=== PATIENT | female | born 2000 | race African-American/Black ===

== ENCOUNTER → 2019-12-08 16:51 | Outpatient (CLI) | payer OTHER, SELFPAY ==
--- NOTE | 2019-12-08 | DI.US.S_ITS ---
PROCEDURE: US OB <= 14 WEEKS FETUS INDICATIONS: INITIAL SIZING AND DATES OUTSIDE/PRIOR DATING DATA: Last menstrual period (LMP): 11/01/19. LMP-based estimated date of delivery (MILLIE): 08/07/20 First dating scan (date and location): 12/08/19, this study Estimated date of delivery (MILLIE) from first dating scan: 08/06/20 TECHNIQUE: Real-time scanning was performed of the fetus and maternal pelvic organs, with image documentation. Endovaginal scanning was also performed to better visualize the fetus and maternal ovaries. COMPARISON: None. FINDINGS: Embryo: Not seen but there is a yolk sac within the gestational sac within the uterus. This yolk sac measures up to 7 mm in average diameter with a gestational age correlated to 5 weeks 3 days. Measurement variability in dating: +/- 4 weeks by LMP, +/- 7 days by mean sac diameter (use before 6 weeks gestation if crown-rump length not able to be measured), +/- 5 days by crown-rump length (up to 8 weeks 6 days gestation), +/- 7 days by crown-rump length (up to 13 weeks 6 days gestation). Maternal organs: Ovaries normal considering gestational status. Limited images through the kidneys demonstrate no hydronephrosis. IMPRESSION: 5 week 3 day gestational age based on mean sac diameter, +/-7 days. cardiac activity is not yet observed but not expected at this young gestational age. +/-7 days. Assuming viable gestation delivery date is projected to be centered on 08/06/20, Dictated by: Dc Mancuso M.D. on 12/09/2019 at 8:14 Approved by: Dc Mancuso M.D. on 12/09/2019 at 8:16
== END ==
PROVIDERS: Family Provider Family Medicine; PCP Family Medicine; Referring Provider Internal Medicine; Visit Provider Internal Medicine
DX: Z36.87 Encounter for antenatal screening for uncertain dates (principal); Z3A.01 Less than 8 weeks gestation of pregnancy
CPT/HCPCS: 76801; 76817

== ENCOUNTER → 2020-03-20 14:16 | Outpatient (CLI) | payer OTHER, SELFPAY ==
--- NOTE | 2020-03-20 | DI.US.S_ITS ---
PROCEDURE: US OB >= 14 WEEKS FETUS INDICATIONS: 20 WEEK ANATOMICAL SURVEY OUTSIDE/PRIOR DATING DATA: Last menstrual period (LMP): 11/01/19. LMP-based estimated date of delivery (MILLIE): 08/07/20 First dating scan (date and location): 12/08/19 Estimated date of delivery (MILLIE) from first dating scan: 08/06/20 TECHNIQUE: Real-time scanning was performed of the fetus, with image documentation and biometric measurements. Endovaginal scanning: Not needed COMPARISON: Prior OB ultrasound 12/08/19 FINDINGS: General: A single living intrauterine gestation is present. Presentation: Breech. Placenta: Placental position is posterior , without previa. Amniotic fluid index: 16.4 cm, normal range is 5-24 cm. heart rate: 143 beats per minute. Maternal cervical canal: 3.8 cm long. Normal lower limit is 2.5 cm. biometrics: Biparietal diameter: 4.5 cm, 19 weeks 4 days Head circumference: 16.3 cm, 19 weeks 1 day Abdominal circumference: 15.0 cm common 20 weeks 2 days Femur length: 3.2 cm, 19 weeks 6 days Estimated gestational age from initial scan: 20 weeks 1 day Composite gestational age from present scan: 19 weeks 5 days Estimated weight and percentile: 321 g, 33rd percentile Measurement variability for biometric dating: +/- 7 days from 14 weeks to 15 weeks 6 days gestation, +/- 10 days from 16 weeks to 21 weeks 6 days gestation, +/- 2 weeks from 22 weeks to 27 weeks 6 days gestation, +/- 3 weeks for 28 weeks gestation or later. weight reference: 4500 g or EFW >90/95% is considered macrosomia or large for gestational age. EFW <10% is small for gestational age. EFW 5% or less is considered intra-uterine growth restriction. Anatomic survey: Neuro: Ventricles are non-dilated at less than 10 mm. Cisterna magna is normal at 3-11 mm. Cerebellum is normal in size and morphology. Nuchal skin fold: Normal at less than 6 mm between 14-21 weeks gestational age. Face: Nose and lips, facial profile are normal. Spine: No evidence for spina bifida. Heart: 4-chambered heart is present, with normal ventricular outflow tracts. Diaphragm: Diaphragm is intact. Stomach: Left-sided stomach is present. Kidneys: No hydronephrosis. Normal is less than 5 mm in 2nd trimester, less than 7 mm in 3rd trimester. Cord: 3-vessel cord has orthotopic insertion. Bladder: Normal in size. Extremities: All 4 extremities identified. IMPRESSION: Appropriate interval growth, no anomaly seen. The delivery date is projected to be centered on 08/06/20, +/-7 days. Dictated by: Dc Mancuso M.D. on 03/20/2020 at 16:16 Approved by: Dc Mancuso M.D. on 03/20/2020 at 16:20
== END ==
PROVIDERS: Family Provider Family Medicine; PCP Family Medicine; Referring Provider Family Medicine; Visit Provider Family Medicine
DX: Z36.89 Encounter for other specified antenatal screening (principal); Z3A.19 19 weeks gestation of pregnancy
CPT/HCPCS: 76811

== ENCOUNTER 2020-04-26 17:47 | Emergency (ER) | payer OTHER, SELFPAY ==
[2020-04-26 17:52] VITALS: BP 123/81; PULSE 95; RESP 17; TEMP 36.7; O2SAT 99; BMI 33.9
--- NOTE | 2020-04-26 18:42 | ED_ITS ---
HPI - Skin/Abscess/Foreign Bdy General Chief complaint: Skin/Abscess/Foreign Body Stated complaint: infection/pain- 25 wks not related Time Seen by Provider: 04/26/20 18:19 Source: patient Mode of arrival: Wheelchair Limitations: no limitations History of Present Illness HPI narrative: 19-year-old female nonsmoker at 25 weeks presents with her significant other and the chief complaint of ongoing pain, redness, and swelling of her external genitalia. She has seen her PCP who started her on Keflex and she states the symptoms are much better, but still present She denies any drainage, vaginal bleeding, or discharge. She denies systemic findings such as fever, chills, N/V, or other. MD complaint: abscess/boil Onset (ago): day(s) Tetanus up to date: yes Location: genitals Severity: moderate Quality: aching Pain Consistency: constant Relieving factors: none Exacerbating factors: none Context: none Associated symptoms: denies other symptoms Treatments prior to arrival: attempted to drain pus at home and antibiotic Related Data Home Medications Medication Instructions Recorded Confirmed TRIAMCINOLONE NASAL INHALER 0 INH * UK DOSE/FREQUENCY #0 01/19/07 (NASACORT) Loratadine (Claritin) 10 mg PO Q DAY #0 11/14/07 Allergies Allergy/AdvReac Type Severity Reaction Status Date / Time No Known Drug Allergies Allergy Verified 04/26/20 17:52 Review of Systems Constitutional Constitutional: Denies chills, Denies fatigue, Denies fever(s), Denies frequent falls, Denies lethargy and Denies weakness Eyes Eyes: Denies change in vision, Denies eye discharge, Denies irritation and Denies loss of vision ENT Ears, Nose, Mouth, and Throat: Denies change in voice, Denies dizziness, Denies neck pain, Denies sore throat and Denies throat swelling Cardiovascular Cardiovascular: Denies chest pain, Denies irregular heart rhythm, Denies lightheadedness, Denies palpitations, Denies dyspnea, Denies dyspnea on exertion and Denies orthopnea Respiratory Respiratory: Denies cough, Denies dyspnea, Denies dyspnea on exertion and Denies wheezing Gastrointestinal Gastrointestinal: Denies abdominal pain, Denies change in bowel habits, Denies diarrhea, Denies nausea and Denies vomiting Musculoskeletal Musculoskeletal: Denies neck pain and Denies numbness Integumentary/Breasts Skin/Breast: Denies pruritus, Reports erythema, Denies rash, Reports skin pain, Reports skin swelling and Denies wounds Neurologic Neurologic: Denies behavioral changes, Denies confusion, Denies dizziness, Denies frequent falls, Denies loss of vision, Denies numbness and Denies weakness Psychiatric Psychiatric: Denies anxiety, Denies behavioral changes, Denies confusion, Denies depression, Denies homicidal ideation and Denies suicidal ideation Endocrine Endocrine: Denies fatigue, Denies flushing and Denies palpitations Hematologic/Lymphatic Hematologic/Lymphatic: Denies easy bruising Allergic/Immunologic Allergic/Immunologic: Denies urticaria, Denies throat swelling and Denies wheezing Patient History Social History Smoking Status: Unknown if ever smoked Smoking Status: Unknown if ever smoked alcohol intake frequency: holidays/special occasions only Substance Use Type: marijuana Exam Narrative Exam Narrative: GEN: AOx3 and in mild distress EYES: Pupils are equal, round, and reactive to light and accommodation. Extraoccular muscles are intact bilaterally. There is no subconjunctival hemorrhage or exudate. CHEST: Lungs are clear to auscultation bilaterally and free of wheezes, rales, or rhonchi. Heart rate is regular rhythm, there are no murmurs, clicks, rubs, or gallops. There is no chest wall tenderness. ABD: Abdomen is soft and nontender. There is no guarding or rebound. Bowel sounds are normal in all 4 quadrants. There is no mass or organomegaly. : external genitalia examined with patient permission and female nursing outpatient coding specialist at the bedside. Right labia is slightly edematous, with mild erythema. No induration or fluctuance noted. No drainage or skin break down noted. No discharge or vaginal bleeding noted EXT: Full painless ROM of all extremities with no loss of sensation or strength. SKIN: Warm, pink, and dry. No erythema or rash Initial Vital Signs Initial Vital Signs: Vital Signs Temperature 98.1 F 04/26/20 17:52 Pulse Rate 95 H 04/26/20 17:52 Respiratory Rate 17 04/26/20 17:52 Blood Pressure 123/81 04/26/20 17:52 Pulse Oximetry 99 04/26/20 17:52 Course Consultations Consultation #1: call to OnCall provider for PCP, she has reviewed the case and will pass on results of the visit to Dr. Valiente. She will also call in an extention of ABX to her pharmacy Vital Signs Vital signs: Vital Signs - 8 hr 04/26/20 17:52 Temperature 98.1 F Pulse Rate 95 H Respiratory Rate 17 Blood Pressure 123/81 Pulse Oximetry 99 Discharge Plan Departure Patient Disposition: Home Clinical Impression: Folliculitis Instructions: DI for Skin Abscess Activity Restrictions/Additional Instructions: *You have been diagnosed with [painful external genitalia, likely folliculitis or small healing abscess] *What to do: *Take medications as directed: your doctors will extend your antibiotics *Follow up with your primary care provider in 2-3 days, call for an appointment. Let them know you were seen in the Emergency Department and that we ask that you be seen in follow up *Return to ER if you should have any new, worsening or concerning symptoms Prescriptions: No Action TRIAMCINOLONE NASAL INHALER (NASACORT) 0 INH * UK DOSE/FREQUENCY Qty: 0 RF: 0 Loratadine (Claritin) 10 mg PO Q DAY Qty: 0 RF: 0 Referrals: Patrick Valiente MD [Primary Care Provider] -
--- NOTE | 2020-04-26 18:50 | PC.NURSE ---
patient states that she has multiple cysts on vagina since 11 of April. She was treated by Dr. Rocha with a medication that smelled bad. She stated that she thinks one popped today because it was painful and she had fluid in her panties with a little blood
[2020-04-26 20:30] VITALS: BP 132/75; PULSE 95; RESP 14; O2SAT 99
== END 2020-04-26 20:31 | disposition home or self-care (01) ==
PROVIDERS: Emergency Provider Emergency Medicine; Family Provider Family Medicine; PCP Family Medicine
DX: L73.9 Follicular disorder, unspecified (principal)
CPT/HCPCS: 99281

== ENCOUNTER → 2020-05-30 12:46 | Outpatient (CLI) | payer OTHER, SELFPAY ==
--- NOTE | 2020-05-30 | DI.US.S_ITS ---
PROCEDURE: US OB LIMITED INDICATIONS: LGA OUTSIDE/PRIOR DATING DATA: Last menstrual period (LMP): 11/01/2019. LMP-based estimated date of delivery (MILLIE): 08/07/2020. First dating scan (date and location): 12/08/2019, [facility] Estimated date of delivery (MILLIE) from first dating scan: 08/06/2020. TECHNIQUE: Real-time scanning was performed of the fetus, with image documentation and biometric measurements. COMPARISON: None. FINDINGS: General: A single living intrauterine gestation is present. Presentation: Vertex. Placenta: Placental position is posterior , without previa. Amniotic fluid index: 18.9 cm, normal range is 5-24 cm. heart rate: 139 beats per minute. Maternal cervical canal: 2.7 cm long. Normal lower limit is 2.5 cm. biometrics: Biparietal diameter: 7.6 cm, 30 weeks 3 days Head circumference: 26.9 cm, 29 weeks 2 days Abdominal circumference: 25.9 cm, 30 weeks 0 days Femur length: 5.7 cm, 29 weeks 5 days Estimated gestational age from initial scan: not applicable. Composite gestational age from present scan: 29 weeks 6 days Estimated weight and percentile: 1473 g, 25th percentile Measurement variability for biometric dating: +/- 7 days from 14 weeks to 15 weeks 6 days gestation, +/- 10 days from 16 weeks to 21 weeks 6 days gestation, +/- 2 weeks from 22 weeks to 27 weeks 6 days gestation, +/- 3 weeks for 28 weeks gestation or later. weight reference: 4500 g or EFW >90/95% is considered macrosomia or large for gestational age. EFW <10% is small for gestational age. EFW 5% or less is considered intra-uterine growth restriction. Other: Not applicable. IMPRESSION: 1. Living 3rd trimester intrauterine with no evidence of complications. 2. Current ultrasound age is 3 days less than clinical age. Dictated by: Remington Hoyos M.D. on 05/31/2020 at 8:43 Approved by: Remington Hoyos M.D. on 05/31/2020 at 8:48
== END ==
PROVIDERS: Family Provider Family Medicine; PCP Family Medicine; Referring Provider Family Medicine; Visit Provider Family Medicine
DX: Z36.88 Encounter for antenatal screening for fetal macrosomia (principal); Z3A.29 29 weeks gestation of pregnancy
CPT/HCPCS: 76815

== ENCOUNTER 2020-07-13 16:43 | Outpatient (CLI) | payer OTHER, SELFPAY | END 2020-07-13 17:39 | disposition home or self-care (01) | LOC: LABOR 16:52 → OB 07-16 06:46 | PROVIDERS: Family Provider Family Medicine; PCP Family Medicine; Referring Provider Family Medicine; Visit Provider Family Medicine | DX: O47.03 False labor before 37 completed weeks of gestation, third trimester (principal); N89.8 Other specified noninflammatory disorders of vagina; Z3A.36 36 weeks gestation of pregnancy | CPT/HCPCS: 59025; 84112; G0378; G0379 ==

== ENCOUNTER → 2020-07-20 12:20 | Outpatient (ROUT) | payer OTHER, SELFPAY | PROVIDERS: Family Provider Family Medicine; PCP Family Medicine; Visit Provider Family Medicine | DX: Z34.90 Encounter for supervision of normal pregnancy, unspecified, unspecified trimester (principal) | CPT/HCPCS: 87081; 87147 ==

== ENCOUNTER 2020-08-02 22:41 | Observation (INO) | payer OTHER, SELFPAY ==
[2020-08-03] MEDS: LACTATED RINGERS 1,000 ML 1000 ML IV (00:38)
== END 2020-08-03 02:30 | disposition home or self-care (01) ==
PROVIDERS: Admitting Provider Family Medicine; Family Provider Family Medicine; PCP Family Medicine; Referring Provider Family Medicine; Visit Provider Family Medicine
DX: O26.893 Other specified pregnancy related conditions, third trimester (principal); E86.0 Dehydration; Z3A.39 39 weeks gestation of pregnancy
CPT/HCPCS: 59025; 59050; 84112; 96360; G0378; G0379

== ENCOUNTER 2020-08-14 01:32 | Inpatient (IN) | payer OTHER, SELFPAY ==
[2020-08-14 02:10] LABS: Add Manual Diff / Slide Review NO; Basophils Absolute Auto 100 /uL (0-100); Basophils Percent Auto 0.7 % (0-2); Eosinophils Absolute Auto 200 /uL (0-450); Eosinophils Percent Auto 1.9 % (2-4); Hematocrit 34.4 % (36-46); Hemoglobin 10.9 g/dL (12.0-16.0); Lymphocytes Absolute Auto 2400 /uL (1100-4500); Lymphocytes Percent Auto 18.3 % (25-40); Mean Corpuscular HGB Conc 31.7 % (30-36); Mean Corpuscular Hemoglobin 24.1 PG (26-34); Mean Corpuscular Volume 75.8 fL (80-100); Monocytes Absolute Auto 1200 /uL (0-900); Neutrophils Absolute Auto 9000 /uL (1500-7000); Neutrophils Percent Auto 70.1 % (50-75); Platelet Count 279 X10^3/uL (150-400); Red Blood Cell Count 4.54 X10^6/uL (4.0-5.2); White Blood Cell Count 12.9 X10^3/uL (4.5-11.0)
[2020-08-14] MEDS: PENICILLIN G POTASSIUM 5,000,000 UNIT in DEXTROSE 5% IN WATER 250 ML IV (02:44)
[2020-08-14] MEDS: LACTATED RINGERS 1,000 ML 100 ML IV (02:45)
[2020-08-14 03:36] LABS: COVID19 - ADMIT (NP swab/PCR) Negative (Negative)
[2020-08-14 06:00] VITALS: BP 133/77
[2020-08-14] MEDS: PENICILLIN G POTASSIUM 3,000,000 UNIT/50 ML FROZ.PIGGY 100 UNIT IV (06:28)
--- NOTE | 2020-08-14 09:14 | PM.OBPRVD ---
Labor & Delivery Delivery date: 08/14/20 Intrapartal Events: None Cervical ripening method: none Induction method: none Delivery monitor: external FHT Route of delivery: Episiotomy description: None L&D Laceration Description: Periurethral - 1st Degree and Perineal - 1st Degree Estimated blood loss (mL): 500 Complications: None Narrative: Mother presented last night after having 2 day history of increased contractions. Yesterday become more intense. She presented with reassuring heart monitor and a 3 cm X. She was monitored in ruptured at 1:50 a.m. with clear fluid. She continued to present to the night with increasing contractions. Pain control was done by nitrous. Which she did very well with. For stage was completed this morning. Without significant issues. She began on 2nd stage was having some discolorations into the 70s and 80s actually in between contractions and into the 110s with contractions. For a first-time she did well. Moved into squatting position until heart monitor was slightly decreased and we later back into a comfortable position which she delivered OA over 1st degree periurethral and perineal tears. No nuchal cord. Head was bulb suctioned after delivery. Did have a very tight body delivery. Child was delivered up onto chest immediately and was crying very quickly. Heart rate was excellent. Cord was clamped after allowing it to be 2 minutes without clamping. As per mom's request. Cord is clamped and cut by grandmother. Placenta delivered 3 vessels spontaneously intact. We had some bleeding post placenta and manual massage of the uterus was done. Still had some and Cytotec 600 mg was given. No further problems were noted. Pitocin was started prior to that. Patient tolerated well. Vaginal mucosa was evaluated along with cervix. No cervical tears or vaginal tears were noted. No repair was done. EBL was 500 cc. Mother and infant were in stable condition.
--- NOTE | 2020-08-14 09:20 | P.HPOB_ITS ---
OB HPI Date/Time Date of admission: 08/14/20 Date Patient Seen: 08/14/20 Time Patient Seen: 07:45 History of Present Condition Chief complaint: evaluation of labor : 1 Para: 0 Estimated Date of Delivery: 08/07/20 Estimated Gestational Age (weeks): 41 Narrative: Sharon Gómez is a 19 year old female with EDC 08/07/2020 who presents with increasing contractions over the last 2 days. Good movement. No other changes. Patient was having increasing pain with 3 cm and was admitted History of Present care: good care Dating criteria: LMP confirmed by 1st trimester US Ultrasounds: normal mid trimester US Obstetrical complications: none Medical complications: none Preadmission Labs Blood type: O (+) positive -: Antibody screen: negative, Cystic fibrosis screen: unknown, GBS status: positive, HBsAG: negative, HIV: negative, HSV 1: negative, HSV 2: negative and RPR/VDLR: negative -: Chlamydia screen: not detected and Gonorrhea screen: not detected -: Rubella: unknown and Varicella: unknown HCAB: negative Cell-free DNA: Normal 1 hr GTT: 112 Evaluation Evaluation Laboratory results: Laboratory Tests 08/14/20 08/14/20 08/14/20 02:00 02:00 02:00 WBC 12.9 H RBC 4.54 Hgb 10.9 L Hct 34.4 L MCV 75.8 L MCH 24.1 L MCHC 31.7 RDW 16.0 H Plt Count 279 Neut % (Auto) 70.1 Lymph % (Auto) 18.3 L [place] % (Auto) 9.0 Eos % (Auto) 1.9 L Baso % (Auto) 0.7 Neut # (Auto) 9000 H Lymph # (Auto) 2400 [place] # (Auto) 1200 H Eos # (Auto) 200 Baso # (Auto) 100 SARS-CoV-2 (PCR) Negative Blood Type O Positive Antibody Screen Negative PFSH Social History Smoking Status: Current every day smoker Comment: Patient with history of asthma Meds Home Medications and Allergies Home Medications Medication Instructions Recorded Confirmed Type Loratadine (Claritin) 10 mg PO Q DAY #0 11/14/07 08/14/20 History albuterol 2 puff INHALATION PRN PRN 08/14/20 08/14/20 History Allergies Allergy/AdvReac Type Severity Reaction Status Date / Time peanut Allergy Severe Anaphylaxis Verified 08/14/20 01:45 tree nut Allergy Severe Anaphylaxis Verified 08/14/20 01:45 Review of Systems Review of Systems ROS: Yes All systems reviewed with the patient and are negative except as otherwise documented Exam Vital Signs (past 8 hours): - 08/14/20 06:00 Blood Pressure 133/77 Narrative Exam Narrative: Alert female in no acute distress lungs are clear. Heart regular rate and rhythm. Abdomen is gravid nontender vertex extremities normal Objective Labs Result Diagrams: 08/14/20 02:00 Labs: Laboratory Results - last 24 hr 08/14/20 08/14/20 08/14/20 02:00 02:00 02:00 WBC 12.9 H RBC 4.54 Hgb 10.9 L Hct 34.4 L MCV 75.8 L MCH 24.1 L MCHC 31.7 RDW 16.0 H Plt Count 279 Neut % (Auto) 70.1 Lymph % (Auto) 18.3 L [place] % (Auto) 9.0 Eos % (Auto) 1.9 L Baso % (Auto) 0.7 Neut # (Auto) 9000 H Lymph # (Auto) 2400 [place] # (Auto) 1200 H Eos # (Auto) 200 Baso # (Auto) 100 SARS-CoV-2 (PCR) Negative Blood Type O Positive Antibody Screen Negative Assessment and Plan Assessment and Plan Assessment and Plan narrative: Routine care per GBS positive so will give antibiotics and prepare for vaginal delivery
[2020-08-14] MEDS: LIDOCAINE 1% 20 ML (09:45)
[2020-08-14] MEDS: miSOPROStoL 200 MCG TABLET 800 MCG PR (09:45)
[2020-08-15 06:59] LABS: Hematocrit 29.7 % (36-46); Hemoglobin 9.5 g/dL (12.0-16.0)
[2020-08-15] MEDS: ACETAMINOPHEN 325 MG TABLET 650 MG PO (07:56)
[2020-08-15] MEDS: PRENATAL VIT,CALC/IRON/FOLIC 1 TABLET 1 TAB PO (08:38)
[2020-08-15] MEDS: IBUPROFEN 600 MG TABLET PO (08:38)
--- NOTE | 2020-08-15 08:53 | P.DS_ITS ---
History of Present Illness History of Present Illness Date Patient Seen: 08/15/20 Time Patient Seen: 08:53 Date of Onset of Symptoms: 08/13/20 Chief complaint: Labor & Delivery Narrative: see H&P Discharge Providers Provider Date of admission: 08/14/20 01:32 Discharge Date: 08/15/20 Primary care physician: Patrick Valiente MD Consults: 08/15/20 09:01 Consult to [employer] Routine Comment: Discharge provider: Patrick Valiente MD Summary Hospital Course Discharge Diagnosis: term intrauterine delivered Hospital Course: patient presented with active labor. She ruptured shortly after presentation. She progressed through stage I and delivered without complications. She did well over the 24 hours and was requesting to leave. She had minimal bleeding. H&H was stable. She had no significant abdominal pain pelvic pain she was doing well with Tylenol and ibuprofen. She otherwise had no changes or complaints. Feeling well. Breast-feeding was going well. Breasts were doing well. No other changes. Routine Education on signs of infection. Abdominal discomfort or other changes. She otherwise had no issues we discussed control she wants an IUD at 6 weeks. We discussed pelvic rest increased bleeding fevers chills or other changes. We discussed breast care. She understands questions answered Status at Discharge Cognitive/behavioral status at discharge: oriented Functional status at discharge: independent ambulation Overall status at discharge: patient is progressing back to baseline Exam Vital Signs (past 8 hours): alert female in no acute distress. No other changes. Skin is clear. Lungs are clear. Heart regular rate and rhythm. Abdomen is soft uterus is firm extremities without cyanosis clubbing edema no calf tenderness Objective Labs Result Diagrams: 08/15/20 06:35 Labs: Laboratory Results - last 24 hr 08/15/20 06:35 Hgb 9.5 L Hct 29.7 L PFSH Social History Smoking Status: Current every day smoker Discharge Assessment & Plan Assessment and Plan Assessment: discharge home. Follow-up 6 weeks. Call if any issues routine Education. Discharge home on vitamins ibuprofen Discharge Plan Discharge Plan Patient Disposition: Home Discharge orders & Medications Prescriptions: New Prenatabs Rx 29 mg iron- 1 mg Tablet 1 tab PO DAILY Qty: 30 RF: 0 ibuprofen 600 mg Tablet 600 mg PO Q6HR PRN (Reason: Pain, Mild (1-3)) Qty: 90 RF: 0 Continued Loratadine (Claritin) 10 mg PO Q DAY Qty: 0 RF: 0 albuterol 2 puff inhalation PRN PRN (Reason: Wheezing) RF: 0 Follow up/Referrals: Patrick Valiente MD [Primary Care Provider] - 6 Weeks (please call for appointment) Discharge Health Status Multidrug resistant organism: No MDRO Diet/Activity/Treatments Diet: Diet as Tolerated Activity: No sexual activity for 6 weeks. May slowly increase activity as tolerated Skin/Wound/Dressing Care Report to your healthcare provider any signs of infection, such as:: chills, fever, night sweats and increased pain Discharge Data Primary Care Provider: Patrick Valiente
[2020-08-15 09:39] VITALS: BP 133/77; PULSE 82; RESP 18; TEMP 36.7
[2020-08-15 13:35] VITALS: BP 133/77; PULSE 82; RESP 18; TEMP 36.7
== END 2020-08-15 13:00 | disposition home or self-care (01) | DRG 807 ==
PROVIDERS: Admitting Provider Family Medicine; Family Provider Family Medicine; PCP Family Medicine; Referring Provider Family Medicine; Visit Provider Family Medicine
DX: O99.824 Streptococcus B carrier state complicating childbirth (principal); Z37.0 Single live birth; O70.0 First degree perineal laceration during delivery; Z3A.40 40 weeks gestation of pregnancy
CPT/HCPCS: 36415; 59050; 85014; 85018; 85025; 86850; 86900; 86901; 87635; C9803; G0379; J2540; S0191

== ENCOUNTER → 2020-11-14 07:40 | Outpatient (CLI) | payer OTHER, SELFPAY ==
--- NOTE | 2020-11-14 | DI.US.S_ITS ---
PROCEDURE: US PELVIC COMPLETE INDICATIONS: PELVIC PAIN. 1 MONTH INTRAUTERINE DEVICE/3 MONTHS TECHNIQUE: Real-time scanning was performed of the pelvic organs, with image documentation. Additional endovaginal scanning was necessary due to incomplete visualization of the adnexal and endometrial structures by transabdominal scanning. COMPARISON: None. FINDINGS: Uterus: Uterus is normal in size at 3.7 x 5.9 x 6.3 cm, retroverted. The endometrium measures 5.5 mm in combined thickness. Fundal endometrial canal IUD positioning. Ovaries: Right ovary measures 2.8 x 1.9 x 1.5 cm and the left measures 2.6 x 1.3 x 1.6 cm. Other: No pathologic free abdominal or pelvic fluid. IMPRESSION: Normal pelvic ultrasound, incidental is made of an IUD centrally position within the fundal portion the endometrial canal. Dictated by: Dc Mancuso M.D. on 11/14/2020 at 10:32 Approved by: Dc Mancuso M.D. on 11/14/2020 at 10:56
--- NOTE | 2020-11-14 | DI.US.S_ITS ---
PROCEDURE: US ABDOMEN COMPLETE INDICATIONS: ABDOMINAL PAIN TECHNIQUE: Real-time scanning was performed of the abdominal and retroperitoneal organs, with image documentation. COMPARISON: None. FINDINGS: Liver: Liver is normal in size and homogeneous in echotexture. Gallbladder: The gallbladder appears normal. Biliary ducts: Intrahepatic bile ducts are non-dilated. Extrahepatic bile duct caliber measures 2.0 mm. Normal is 6-7 mm or less in diameter, or 10 mm or less post-cholecystectomy. Pancreas: Visualized portions of the pancreas are sonographically normal. Spleen: Spleen is normal in size and homogeneous in echotexture. Kidneys: Kidneys are normal in size and echotexture. Right kidney measures 10.2 cm long; left kidney measures 10.9 cm long. No hydronephrosis or nephrolithiasis. No solid masses. Aorta: Visualized aorta is normal in caliber at less than 3 cm. Iliacs: Proximal common iliac arteries are normal in caliber at less than 2.5 cm. IVC: Intrahepatic inferior vena cava is patent. Miscellaneous: No free abdominal fluid. IMPRESSION: Normal abdominal ultrasound, source of pain is not seen. Dictated by: Dc Mancuso M.D. on 11/14/2020 at 10:57 Approved by: Dc Mancuso M.D. on 11/14/2020 at 10:58
== END ==
PROVIDERS: Family Provider Family Medicine; PCP Family Medicine; Referring Provider Family Medicine; Visit Provider Family Medicine
DX: R10.9 Unspecified abdominal pain (principal); R10.2 Pelvic and perineal pain; Z97.5 Presence of (intrauterine) contraceptive device
CPT/HCPCS: 76700; 76830; 76856

== ENCOUNTER → 2022-06-24 10:10 | Outpatient (CLI) | payer BC, OTHER, SELFPAY ==
--- NOTE | 2022-06-24 | DI.RAD.S_ITS ---
PROCEDURE: XR TIBIA FIBULA LT 2V INDICATIONS: Bitten by dog, initial encounter TECHNIQUE: 2 views of the tibia and fibula were acquired. COMPARISON: None. FINDINGS: Bones: No fractures or dislocations. No suspicious bony lesions. Soft tissues: No suspicious soft tissue calcifications. IMPRESSION: No acute osseous abnormality. If symptoms persist, follow-up radiographs and/or CT or MRI may be helpful for further evaluation. Dictated by: Reese Chaudhry M.D. on 06/24/2022 at 20:59 Approved by: Reese Chaudhry M.D. on 06/24/2022 at 21:01
== END ==
PROVIDERS: Family Provider Family Medicine; Referring Provider Family Medicine; Visit Provider Family Medicine
DX: S81.852A Open bite, left lower leg, initial encounter (principal); W54.0XXA Bitten by dog, initial encounter
CPT/HCPCS: 73590

== ENCOUNTER → 2022-12-05 12:30 | Outpatient (CLI) | payer BC, OTHER, SELFPAY ==
--- NOTE | 2022-12-05 | DI.RAD.S_ITS ---
PROCEDURE: XR TIBIA FIBULA LT 2V INDICATIONS: dog bite TECHNIQUE: 2 views of the tibia and fibula were acquired. COMPARISON: [facility], CR, XR TIBIA FIBULA LT 2V, 06/24/2022, 10:25. FINDINGS: Bones: No fractures or dislocations. No suspicious bony lesions. Soft tissues: No suspicious soft tissue calcifications. IMPRESSION: No acute fracture visualized. If symptoms persist, follow-up radiographs and/or CT or MRI may be helpful for further evaluation. Dictated by: Reese Chaudhry M.D. on 12/05/2022 at 16:29 Approved by: Reese Chaudhry M.D. on 12/05/2022 at 16:32
[2022-12-05 13:12] LABS: Add Manual Diff / Slide Review NO; Basophils Absolute Auto 200 /uL (0-100); Basophils Percent Auto 1.6 % (0-2); Eosinophils Absolute Auto 500 /uL (0-450); Eosinophils Percent Auto 4.8 % (2-4); Hemoglobin 13.6 g/dL (12.0-16.0); Lymphocytes Absolute Auto 2100 /uL (1100-4500); Lymphocytes Percent Auto 21.4 % (25-40); Mean Corpuscular Hemoglobin 30.4 PG (26-34); Mean Corpuscular Volume 89.3 fL (80-100); Monocytes Absolute Auto 600 /uL (0-900); Monocytes Percent Auto 5.9 % (3-14); Neutrophils Absolute Auto 6600 /uL (1500-7000); Neutrophils Percent Auto 66.3 % (50-75); Platelet Count 267 X10^3/uL (150-400); Red Blood Cell Count 4.48 X10^6/uL (4.0-5.2); Red Cell Distribution Width 12.4 % (11.6-14.8); White Blood Cell Count 9.9 X10^3/uL (4.5-11.0)
== END ==
PROVIDERS: Family Provider Family Medicine; PCP Family Medicine; Referring Provider Family Medicine; Visit Provider Family Medicine
DX: Z13.0 Encounter for screening for diseases of the blood and blood-forming organs and certain disorders involving the immune mechanism; S81.852A Open bite, left lower leg, initial encounter; W54.0XXA Bitten by dog, initial encounter
CPT/HCPCS: 36415; 73590; 85025

== ENCOUNTER → 2023-03-04 17:09 | Outpatient (CLI) | payer OTHER, SELFPAY ==
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
== END ==
PROVIDERS: Family Provider Family Medicine; PCP Family Medicine; Referring Provider Physician Assistant; Visit Provider Physician Assistant
DX: M54.9 Dorsalgia, unspecified (principal); M54.50 Low back pain, unspecified
CPT/HCPCS: 72072; 72100

== ENCOUNTER → 2023-05-10 10:43 | Outpatient (CLI) | payer OTHER, SELFPAY ==
--- NOTE | 2023-05-10 10:44 | DI.RAD.S_ITS ---
PROCEDURE: XR CHEST 2V INDICATIONS: Cough TECHNIQUE: 2 views of the chest were acquired. COMPARISON: None. FINDINGS: Surgical changes and devices: None. Lungs and pleura: Lungs are clear. No pleural effusions or pneumothorax. Mediastinum: Mediastinal contours are normal. Heart size is normal. Bones and chest wall: No suspicious bony abnormalities. Soft tissues appear unremarkable. IMPRESSION: No acute cardiopulmonary process. Dictated by: Kelly Guillen M.D. on 05/10/2023 at 19:21 Approved by: Kelly Guillen M.D. on 05/10/2023 at 19:22
== END ==
LOC: RAD 10:44
PROVIDERS: Family Provider Family Medicine; PCP Family Medicine; Referring Provider Nurse Practitioner Family; Visit Provider Nurse Practitioner Family
DX: R05.9 Cough, unspecified (principal)
CPT/HCPCS: 71046

== ENCOUNTER 2023-09-23 14:56 | Emergency (ER) | payer OTHER, SELFPAY ==
[2023-09-23 15:55] VITALS: BP 132/77; PULSE 85; RESP 16; TEMP 36.9; O2SAT 98; BMI 33.3
[2023-09-23] MEDS: ONDANSETRON 4 MG ODT SL (16:04)
[2023-09-23 17:12] LABS: Appearance Urine UA CLEAR; Bilirubin Urine UA 1+ (NEGATIVE); Color Urine UA YELLOW; Glucose Urine UA NEGATIVE (Negative); Ketones Urine UA NEGATIVE (NEGATIVE); Leukocyte Esterase Urine UA NEGATIVE (NEGATIVE); Nitrite Urine UA POSITIVE (Negative); Occult Blood Urine UA 3+ (Negative); Protein Urine UA TRACE (Negative); Specific Gravity Urine UA >=1.030 (1.000-1.035)
[2023-09-23 17:15] LABS: pH Urine UA 5.5 (4.5-8.0)
[2023-09-23 17:30] LABS: Bacteria Urine Occasional (0-1); Ictotest Urine Positive (Negative); RBC Urine 1-5/HPF (0-5/HPF); Urine Volume 10mL (spun); WBC Urine 1-5/HPF (0-5/HPF)
[2023-09-23 17:31] LABS: Culture Indicated Urine Specimen Cultured; Mucus Urine 2+ (Negative); Renal Epithelial Cells Urine None Seen (0-1/HPF); Squamous Epithelial Cell Urine 0-1 /HPF (0-5/HPF); Transitional Epi Cells Urine None Seen (0-5/HPF)
--- NOTE | 2023-09-23 21:20 | ED.NAVMDI ---
HPI - Nausea/Vomiting/Diarrhea General Chief complaint: Nausea/Vomiting/Diarrhea Stated complaint: vomiting, diarrhea, abd px, syncope Time Seen by Provider: 09/23/23 21:20 Source: patient Mode of arrival: Family Vehicle History of Present Illness HPI Narrative: Otherwise healthy 22-year-old woman who has been having vomiting and diarrhea for the last 36 hours. She states that even water causes projectile vomiting and persistent heaving. She notes that her daughter had similar symptoms about a week ago with everything seeming to improve. At this point she states she is having trouble standing up because she is so dizzy. Worried that she is dehydrated. Notes hand involuntary cramping. She has had low-grade fevers. There has been no blood in the vomiting or stool. Headaches have been noted but no nuchal rigidity. No chest pain or palpitations. No cough Related Data Home Medications Medication Instructions Recorded Confirmed albuterol sulfate 2.5 mg/3 mL mg inhalation 05/10/23 05/10/23 (0.083 %) solution for nebulization Previous Rx's Medication Instructions Recorded fluticasone propionate 50 1 spray intranasal Q12H #16 grams 05/10/23 mcg/actuation nasal spray,suspension (Flonase Allergy Relief) Allergies Allergy/AdvReac Type Severity Reaction Status Date / Time peanut Allergy Severe Anaphylaxis Verified 05/10/23 10:29 tree nut Allergy Severe Anaphylaxis Verified 05/10/23 10:29 Review of Systems Review of Systems Narrative: Pertinent positive and negative findings as per HPI Patient History Social History Smoking Status: Current every day smoker Smoking Status: Current every day smoker alcohol intake frequency: holidays/special occasions only Substance Use Type: marijuana Exam Initial Vital Signs Initial Vital Signs: Vital Signs Temperature 98.5 F 09/23/23 15:55 Pulse Rate 85 09/23/23 15:55 Respiratory Rate 16 09/23/23 15:55 Blood Pressure 132/77 09/23/23 15:55 Pulse Oximetry 98 09/23/23 15:55 Oxygen Delivery Method Room Air 09/23/23 15:55 General: Appears fatigued and somewhat dehydrated but Able to give a complete and coherent history. HEENT: Dry mucous membranes, normal sclera with reactive pupils, Neck: No cervical adenopathy Respiratory: Lungs are clear to auscultation, no wheezing no rales no rhonchi. Full and symmetrical air movement Cardiac: Tachycardic but otherwise Regular rate and rhythm no murmurs no bruits Abdomen: Soft, nontender, no rebound or guarding no flank pain Skin: Warm and dry, no rashes Neurologic: Grossly neurologically intact with no obvious asymmetries or abnormalities Extremities: No trauma, well perfused Psych: Cooperative, appropriate insight and affect Course Orders Ordered: ED Orders 09/23/23 16:27 Ictotest Urine Stat Urinalysis and Microscopic Stat Urine Culture Stat 09/23/23 21:40 Complete Blood Count AUTO DIFF Stat Comprehensive Metabolic Panel Stat Lipase Stat Ondansetron HCl (Ondansetron 4 Mg Odt) 4 mg SL NOW PRN PRN Reason: Nausea And Vomiting Last Admin: 09/23/23 16:04 Dose: 4 mg Documented By: NAA Ondansetron HCl (Ondansetron 4 Mg/2 Ml Inj) 4 mg IV NOW PRN PRN Reason: Nausea And Vomiting Discontinued Medications Sodium Chloride (Normal Saline 0.9%) 1,000 mls @ 1,000 mls/hr IV BOLUS ONE Stop: 09/23/23 22:23 Last Infusion: 09/23/23 22:26 Dose: Infused Documented By: Admin: 09/23/23 21:32 Dose: 1,000 mls/hr Documented By: NAA Sodium Chloride (Normal Saline 0.9%) 1,000 mls @ 1,000 mls/hr IV BOLUS ONE Stop: 09/23/23 22:24 Last Admin: 09/23/23 21:41 Dose: 1,000 mls/hr Documented By: NAA Ketorolac Tromethamine (Ketorolac 30 Mg/Ml Vial) 15 mg IV NOW ONE Stop: 09/23/23 21:25 Last Admin: 09/23/23 21:29 Dose: 15 mg Documented By: NAA Ondansetron HCl (Ondansetron 4 Mg/2 Ml Inj) 4 mg IV NOW ONE Stop: 09/23/23 21:25 Last Admin: 09/23/23 21:28 Dose: 4 mg Documented By: NAA Vital Signs Vital signs: Vital Signs - 8 hr 09/23/23 15:55 09/23/23 22:13 Temperature 98.5 F 98.3 F Pulse Rate 85 74 Respiratory Rate 16 16 Blood Pressure 132/77 120/75 Pulse Oximetry 98 98 Oxygen Delivery Method Room Air Room Air MDM - Nausea/Vomiting/Diarrhea Lab Data 09/23/23 21:40 09/23/23 21:40 Labs: Lab Results 09/23/23 09/23/23 Range/Units 16:27 21:40 WBC 7.4 (4.5-11.0) X10^3/uL RBC 4.64 (4.0-5.2) X10^6/uL Hgb 13.9 (12.0-16.0) g/dL Hct 40.5 (36-46) % MCV 87.4 (80-100) fL MCH 30.0 (26-34) PG MCHC 34.4 (30-36) % RDW 12.6 (11.6-14.8) % Plt Count 229 (150-400) X10^3/uL Neut % (Auto) 60.0 (50-75) % Lymph % (Auto) 28.3 (25-40) % Petroleum % (Auto) 10.3 (3-14) % Eos % (Auto) 1.0 L (2-4) % Baso % (Auto) 0.4 (0-2) % Neut # (Auto) 4500 (0230-7829) /uL Lymph # (Auto) 2100 (9726-5430) /uL Petroleum # (Auto) 800 (0-900) /uL Eos # (Auto) 100 (0-450) /uL Baso # (Auto) 0 (0-100) /uL Sodium 137 (137-145) mmol/L Potassium 3.5 (3.4-5.1) mmol/L Chloride 104 (98-107) mmol/L Carbon Dioxide 29 (22-32) mmol/L BUN 16 (7-17) mg/dL Creatinine 0.70 (0.52-1.04) mg/dL Estimated GFR > 60 (>60) mL/min BUN/Creatinine Ratio 22.9 H (6-22) Glucose 95 (70-100) mg/dL Calcium 8.6 (8.4-10.2) mg/dL Total Bilirubin 0.9 (0.2-1.3) mg/dL AST 26 (14-36) IU/L ALT 23 (<35) IU/L Alkaline Phosphatase 66 (38-126) U/L Total Protein 7.2 (6.3-8.2) g/dL Albumin 4.4 (3.5-5.0) g/dL Globulin 2.8 (1.7-4.1) g/dL Albumin/Globulin Ratio 1.6 (1.0-2.8) Lipase 47 (23-300) U/L Urine Color Yellow Urine Appearance Clear Urine pH 5.5 (4.5-8.0) Ur Specific [place] >=1.030 H (1.000-1.035) Urine Protein Trace H (Negative) Urine Glucose (UA) Negative (Negative) g/dL Urine Ketones Negative (NEGATIVE) Urine Occult Blood 3+ H (Negative) Urine Nitrate Positive H (Negative) Urine Bilirubin 1+ H (NEGATIVE) Ur Bilirubin Confirm Positive H (Negative) Urine Urobilinogen 1.0 (0.2) E.U./dL Ur Leukocyte Esterase Negative (NEGATIVE) Urine RBC 1-5/hpf (0-5/HPF) Urine WBC 1-5/hpf (0-5/HPF) Ur Squamous Epith Cells 0-1 /hpf (0-5/HPF) Ur Transition Epith Cell None seen (0-5/HPF) Ur Renal Epithelial Cell None seen (0-1/HPF) Urine Bacteria Occasional (0-1) (None) Urine Mucus 2+ H (Negative) Ur Culture Indicated? Specimen cultured Vol Urine Centrifuged 10ml (spun) Point of Care Testing Test Results Negative Urine Dip Bedside Urine Glucose Negative Bedside Urine Bilirubin + 1 Bedside Urine Ketone +/- 5 Urine Specific [place] 1.030 Bedside Urine Occult Blood +++ Bedside Urine pH 5.5 Bedside Urine Protein + 30 Bedside Urine Urobilinogen - Negative Bedside Urine Nitrite - Negative Bedside Urine Leukocytes +/- 15 Esterase MDM Narrative Medical decision making narrative: CC: 36 hours of unrelenting nausea and vomiting Data collected from: patient Differential considered: Viral gastroenteritis, sepsis, bowel obstruction, colitis Exam documented above, pertinent findings include: Patient appears fatigued, somewhat dehydrated she is not acutely toxic and does not have a surgical abdomen Lab Test results independently reviewed as above. Pertinent findings: No evidence of urinary tract infection Patient is not CBC is unremarkable Chemistries are reassuring with normal renal function and normal electrolytes Lipase is unremarkable Treatments: 2 L of fluid, Zofran, oral challenge Re-evaluations: Patient was feeling significantly improved, she had some crackers some ronel yogi and then had another episode of rather violent emesis. Discussion: 22-year-old woman with 36 hours nausea, vomiting, diarrhea, low-grade fevers. Similar to other family members. Presumed viral gastroenteritis. She does not have an acute abdomen. With feeling significantly better after 2 L of fluid and Zofran. Labs were completely reassuring. She had some crackers and ronel yogi and proceeded to vomit again. With shared decision-making we discussed options and she would prefer to go home. She states that her overall myalgias have improved, she no longer has a headache hand cramping has resolved and she feels significantly better would simply like to go home and sleep and I think this is quite reasonable. He will be discharged home with the Zofran prepack. Encouraged her to return if symptoms are not Discharge Plan Departure Patient Disposition: Home Clinical Impression: Gastroenteritis, Vomiting and diarrhea Instructions: DI for Bacterial Gastroenteritis -- Adult Activity Restrictions/Additional Instructions: Thank you for coming in today Your blood work was quite reassuring. There was no evidence of kidney failure, significant electrolyte abnormalities, acute blood loss or overwhelming bacterial infection. You were given nausea medicine as well as 2 L of fluid in the emergency department I have given you some Zofran to use at home if you are still vomiting after you have a good night sleep. You can use 1 pill under your tongue every 6 hours. If you continue to have dramatic nausea and vomiting that can not be controlled you do need to return to the emergency department Prescriptions: No Action albuterol sulfate 2.5 mg /3 mL (0.083 %) solution for nebulization inhalation fluticasone propionate [Flonase Allergy Relief] 50 mcg/actuation spray,suspension 1 spray intranasal Q12H Qty: 16 0RF Rx Instructions: administer into each nostril Referrals: Patrick Valiente MD [Primary Care Provider] - Stand Alone Forms: Patient Portal/API, Work Release Note
[2023-09-23] MEDS: ONDANSETRON 4 MG/2 ML INJ IV (21:28)
[2023-09-23] MEDS: KETOROLAC 30 MG/ML VIAL 15 MG IV (21:29)
[2023-09-23] MEDS: SODIUM CHLORIDE 0.9% 1,000 ML 1000 ML IV ×2 (21:32→21:41)
[2023-09-23 21:49] LABS: Add Manual Diff / Slide Review NO; Basophils Absolute Auto 0 /uL (0-100); Basophils Percent Auto 0.4 % (0-2); Eosinophils Absolute Auto 100 /uL (0-450); Hematocrit 40.5 % (36-46); Hemoglobin 13.9 g/dL (12.0-16.0); Lymphocytes Absolute Auto 2100 /uL (1100-4500); Lymphocytes Percent Auto 28.3 % (25-40); Mean Corpuscular HGB Conc 34.4 % (30-36); Mean Corpuscular Volume 87.4 fL (80-100); Monocytes Absolute Auto 800 /uL (0-900); Monocytes Percent Auto 10.3 % (3-14); Neutrophils Absolute Auto 4500 /uL (1500-7000); Platelet Count 229 X10^3/uL (150-400); Red Blood Cell Count 4.64 X10^6/uL (4.0-5.2); Red Cell Distribution Width 12.6 % (11.6-14.8); White Blood Cell Count 7.4 X10^3/uL (4.5-11.0)
[2023-09-23 22:05] LABS: Alanine Aminotransferase 23 IU/L (<35); Albumin 4.4 g/dL (3.5-5.0); Albumin Globulin Ratio 1.6 (1.0-2.8); Alkaline Phosphatase 66 U/L (38-126); Aspartate Aminotransferase 26 IU/L (14-36); BUN Creatinine Ratio 22.9 (6-22); Bilirubin Total 0.9 mg/dL (0.2-1.3); Blood Urea Nitrogen 16 mg/dL (7-17); Calcium 8.6 mg/dL (8.4-10.2); Carbon Dioxide 29 mmol/L (22-32); Chloride 104 mmol/L (98-107); Estimated Glomerular Filt Rate > 60 mL/min (>60); Globulin 2.8 g/dL (1.7-4.1); Glucose 95 mg/dL (70-100); HEMOLYSIS < 15 (0-50); Lipase 47 U/L (23-300); Potassium 3.5 mmol/L (3.4-5.1); Sodium 137 mmol/L (137-145); Total Protein 7.2 g/dL (6.3-8.2)
[2023-09-23 22:13] VITALS: BP 120/75; PULSE 74; RESP 16; TEMP 36.8; O2SAT 98
[2023-09-23] MEDS: ONDANSETRON 4 MG ODT PREPACK 1 BOTTLE MISC (22:53)
== END 2023-09-23 23:02 | disposition home or self-care (01) ==
PROVIDERS: Emergency Medicine; Emergency Provider Emergency Medicine; Family Provider Family Medicine; PCP Family Medicine
DX: K52.9 Noninfective gastroenteritis and colitis, unspecified (principal); R11.2 Nausea with vomiting, unspecified; R50.9 Fever, unspecified; R42 Dizziness and giddiness
CPT/HCPCS: 36415; 80053; 81001; 81003; 81025; 83690; 85025; 87086; 96361; 96374; 96375; 99284; J1885; J2405

== ENCOUNTER 2024-07-21 06:54 | Emergency (ER) | payer OTHER, SELFPAY ==
[2024-07-21 07:02] VITALS: BP 171/121; PULSE 72; RESP 16; TEMP 36.4; O2SAT 98; BMI 35.5
--- NOTE | 2024-07-21 07:14 | ED.GENADULT ---
HPI - General Adult General Chief complaint: Abdominal Pain Stated complaint: Gastro issues Time Seen by Provider: 07/21/24 07:00 Source: patient and family Mode of arrival: Wheelchair History of Present Illness HPI narrative: Patient is a 23-year-old female presenting today with ongoing left lower quadrant pain. She was seen evaluated at [facility] July 17. She had full workup trying to get records. Reports that she was given Percocet tamsulosin treated for possible kidney stone. However she continues to have increasing pain which has gotten worse over the last 24 hours. No nausea vomiting or fever. No painful frequent urination or vaginal discharge or recent sexual activity. Related Data Home Medications Medication Instructions Recorded Confirmed levonorgestrel 120 mcg-e.estradiol 1 patch transdermal Q7D 05/30/24 05/30/24 30 mcg/24 hr weekly transderm patch (Twirla) albuterol sulfate 90 mcg/actuation inhalation 06/01/24 06/01/24 aerosol inhaler Previous Rx's Medication Instructions Recorded fluticasone propionate 50 1 spray intranasal Q12H #16 grams 05/10/23 mcg/actuation nasal spray,suspension (Flonase Allergy Relief) hydrocodone 5 mg-acetaminophen 325 1 tab PO Q6H PRN pain #10 tabs 07/21/24 mg tablet Allergies Allergy/AdvReac Type Severity Reaction Status Date / Time peanut Allergy Severe Anaphylaxis Verified 06/01/24 08:02 tree nut Allergy Severe Anaphylaxis Verified 06/01/24 08:02 Patient History alcohol intake frequency: holidays/special occasions only Exam Initial Vital Signs Initial Vital Signs: Vital Signs Temperature 97.5 F L 07/21/24 07:02 Pulse Rate 72 07/21/24 07:02 Respiratory Rate 16 07/21/24 07:02 Blood Pressure 171/121 H 07/21/24 07:02 Pulse Oximetry 98 07/21/24 07:02 Oxygen Delivery Method Room Air 07/21/24 07:02 GENERAL: Tearful crying 23-year-old female and in no acute distress. HEENT: Head atraumatic,EOMI, pupils reactive, face symmetric, moist mucous membranes CARDIOVASCULAR: Regular rate and rhythm without murmurs, rubs or gallops. RESPIRATORY: Breath sounds equal bilaterally, no wheezes rales or rhonchi. ABDOMEN: Soft, significant tenderness left lower quite no guarding no rebound no distinct PELVIC: External genitalia is normal, no vaginal bleeding, no vaginal discharge, no odor, cervical os is closed, cervical motion tenderness EXTREMITIES: Normal range of motion, no clubbing or edema. Neurovascularly intact NEUROLOGICAL: Alert and oriented x4.Normal gait and speech. Cranial nerves II through XII grossly intact. SKIN: Warm, dry, no laceration, no petechiae, no rashes or lesions. Course Orders Ordered: ED Orders 07/21/24 07:16 CBC Auto Diff [Complete Blood Count AUTO DIFF] Stat CMP [Comprehensive Metabolic Panel] Stat Lipase Stat 07/21/24 07:24 CT abdomen pelvis w con Stat 07/21/24 07:40 Chlamydia Gonorrhea PCR -URINE Stat Urine Microscopic Stat 07/21/24 09:03 US pelvic complete Stat 07/21/24 11:24 Chlamydia/Gonoc/Myco Genital Stat Genital Culture Stat 07/21/24 11:25 Wet Prep Tric BV Erika Stat Discontinued Medications Hydromorphone HCl (Hydromorphone 1 Mg Inj) 1 mg IV NOW ONE Stop: 07/21/24 07:25 Last Admin: 07/21/24 07:28 Dose: 1 mg Documented By: KARTIK Hydromorphone HCl (Hydromorphone 1 Mg Inj) 1 mg IV NOW ONE Stop: 07/21/24 10:46 Last Admin: 07/21/24 10:49 Dose: 1 mg Documented By: KARTIK Sodium Chloride (Normal Saline 0.9%) 1,000 mls @ 1,000 mls/hr IV BOLUS ONE Stop: 07/21/24 08:09 Last Infusion: 07/21/24 08:29 Dose: Infused Documented By: Admin: 07/21/24 07:28 Dose: 1,000 mls/hr Documented By: KARTIK Acetaminophen (Ofirmev) 1,000 mg in 100 mls @ 400 mls/hr IV NOW ONE Stop: 07/21/24 09:17 Last Infusion: 07/21/24 10:08 Dose: Infused Documented By: Admin: 07/21/24 09:15 Dose: 400 mls/hr Documented By: KARTIK Ceftriaxone Sodium 1,000 mg/ (Sodium Chloride) 100 mls @ 200 mls/hr IV NOW ONE Stop: 07/21/24 11:26 Last Infusion: 07/21/24 12:11 Dose: Infused Documented By: Admin: 07/21/24 11:34 Dose: 200 mls/hr Documented By: OMAR Ketorolac Tromethamine (Ketorolac 30 Mg/Ml Vial) 15 mg IV NOW ONE Stop: 07/21/24 07:11 Last Admin: 07/21/24 07:28 Dose: 15 mg Documented By: KARTIK Ondansetron HCl (Ondansetron 4 Mg/2 Ml Inj) 4 mg IV NOW ONE Stop: 07/21/24 07:11 Last Admin: 07/21/24 07:28 Dose: 4 mg Documented By: KARTIK Vital Signs Vital signs: Vital Signs - 8 hr 07/21/24 07:02 07/21/24 11:37 07/21/24 11:38 Temperature 97.5 F L Pulse Rate 72 67 Respiratory Rate 16 Blood Pressure 171/121 H 120/78 Pulse Oximetry 98 99 Oxygen Delivery Method Room Air 07/21/24 11:38 07/21/24 12:00 07/21/24 12:01 Temperature Pulse Rate 59 L 74 65 Respiratory Rate Blood Pressure Pulse Oximetry 99 98 99 Oxygen Delivery Method 07/21/24 12:01 Temperature Pulse Rate Respiratory Rate Blood Pressure 120/72 Pulse Oximetry Oxygen Delivery Method Medical Decision Making Lab Data 07/21/24 07:16 07/21/24 07:16 Labs: Lab Results 07/21/24 07/21/24 Range/Units 07:16 07:40 WBC 13.9 H (4.5-11.0) X10^3/uL RBC 4.82 (4.0-5.2) X10^6/uL Hgb 14.2 (12.0-16.0) g/dL Hct 42.1 (36-46) % MCV 87.3 (80-100) fL MCH 29.5 (26-34) PG MCHC 33.8 (30-36) % RDW 12.5 (11.6-14.8) % Plt Count 243 (150-400) X10^3/uL Neut % (Auto) 70.5 (50-75) % Lymph % (Auto) 22.0 L (25-40) % Grady % (Auto) 5.1 (3-14) % Eos % (Auto) 2.0 (2-4) % Baso % (Auto) 0.4 (0-2) % Neut # (Auto) 9800 H (9614-3700) /uL Lymph # (Auto) 3100 (4823-4520) /uL Grady # (Auto) 700 (0-900) /uL Eos # (Auto) 300 (0-450) /uL Baso # (Auto) 100 (0-100) /uL Sodium 136 L (137-145) mmol/L Potassium 3.5 (3.4-5.1) mmol/L Chloride 101 (98-107) mmol/L Carbon Dioxide 26 (22-32) mmol/L BUN 10 (7-17) mg/dL Creatinine 0.64 (0.52-1.04) mg/dL Estimated GFR > 60 (>60) mL/min BUN/Creatinine Ratio 15.6 (6-22) Glucose 123 H (70-100) mg/dL Calcium 9.0 (8.4-10.2) mg/dL Total Bilirubin 0.5 (0.2-1.3) mg/dL AST 30 (14-36) IU/L ALT 25 (<35) IU/L Alkaline Phosphatase 84 (38-126) U/L Total Protein 7.4 (6.3-8.2) g/dL Albumin 4.5 (3.5-5.0) g/dL Globulin 2.9 (1.7-4.1) g/dL Albumin/Globulin Ratio 1.6 (1.0-2.8) Lipase 92 (23-300) U/L Urine RBC 1-5/hpf (0-5/HPF) Urine WBC None seen (0-5/HPF) Ur Squamous Epith Cells 1-5 /hpf (0-5/HPF) Urine Bacteria None seen (None) Ur Culture Indicated? Cult not indicated Vol Urine Centrifuged 10ml (spun) Ur Chlamydia DNA (PCR) Not detected N gonorrhoeae DNA (PCR) Not detected Point of Care Testing Test Results Negative Urine Dip Bedside Urine Glucose Negative Bedside Urine Bilirubin - Negative Bedside Urine Ketone - Negative Urine Specific [place] 1.015 Bedside Urine Occult Blood ++ Bedside Urine pH 8.0 Bedside Urine Protein + 30 Bedside Urine Urobilinogen - Negative Bedside Urine Nitrite - Negative Bedside Urine Leukocytes - Negative Esterase Point of care testing: Point of Care Testing Test Results Negative Urine Dip Bedside Urine Glucose Negative Bedside Urine Bilirubin - Negative Bedside Urine Ketone - Negative Urine Specific [place] 1.015 Bedside Urine Occult Blood ++ Bedside Urine pH 8.0 Bedside Urine Protein + 30 Bedside Urine Urobilinogen - Negative Bedside Urine Nitrite - Negative Bedside Urine Leukocytes - Negative Esterase Imaging Data CT scan - abdomen/pelvis: Radiologist's Impression: PROCEDURE: CT ABDOMEN PELVIS W CON INDICATIONS: left flank and llq pain TECHNIQUE: After the administration of intravenous contrast, axial sections acquired from the lung bases to the pubic symphysis. Coronal and sagittal reformats were performed. For radiation dose reduction, the following was used: automated exposure control, adjustment of mA and/or kV according to patient size. COMPARISON: None. FINDINGS: Image quality: Diagnostic. Lower Chest: No significant findings. ABDOMEN: Liver: No solid mass. Gallbladder: No radiopaque gallstones or gallbladder wall thickening. Biliary ducts: No biliary dilation. Pancreas: No ductal dilation. Spleen: Size is within normal limits. Adrenal Glands: No adrenal nodules. Kidneys and Ureters: No hydronephrosis. No solid mass. No complex renal cystic lesion which requires follow up. Stomach and Bowel: Small hiatal hernia. No bowel obstruction or abnormal bowel wall thickening. Appendix is visualized in bilayer quadrant and is within normal limits. Mild sigmoid diverticulosis without CT evidence of acute diverticulitis. Peritoneum: No abnormal intraperitoneal fluid. No free air. Ventral Wall: No significant ventral hernia. Abdominal Nodes: No retroperitoneal or mesenteric adenopathy by size criteria. Vessels: Aorta and inferior vena cava are normal in size. PELVIS: Pelvic Organs: Unremarkable. Bladder: No bladder wall thickening, accounting for underdistention. Pelvic Nodes: No enlarged lymph nodes. Miscellaneous: No inguinal hernias are seen. Bones: No aggressive osseous abnormality. IMPRESSION: 1. Sigmoid diverticulosis without CT evidence of acute diverticulitis. Normal appendix. No bowel obstruction. No free fluid or free air. 2. No obstructing renal stones or hydronephrosis. 3. No acute inflammatory process is seen in abdomen or pelvis. Dictated by: Glenn Hayes M.D. on 07/21/2024 at 8:3 US - DATA PROCESSING MECHANIC: Radiologist's Impression: PROCEDURE: US PELVIC COMPLETE INDICATIONS: llq pain TECHNIQUE: Real-time scanning was performed of the pelvic organs, with image documentation. Additional endovaginal scanning was necessary due to incomplete visualization of the adnexal and endometrial structures by transabdominal scanning. COMPARISON: [facility], US PELVIC COMPLETE, 11/14/2020, 8:04. FINDINGS: Uterus: 7.1 x 4.3 x 4.1 cm. Retroverted positioning. Thin endometrium measuring 1 mm. Nonspecific tiny echogenic foci. Ovaries: Nonenlarged bilaterally. Other: Incidentally noted cervical motion tenderness. Small amount pelvic free fluid. IMPRESSION: No acute uterine or ovarian abnormality by ultrasound. Cervical motion tenderness incidentally noted on sonographic exam. Dictated by: Husam Da Silva M.D. on 07/21/2024 at 10:18 MDM Narrative Medical decision making narrative: 23-year-old female presenting today with ongoing left lower quadrant pain. She was very tearful upon exam. She was given Dilaudid Toradol which helps all lot. Today she does have mild leukocytosis of 13.9, however CMP is within normal limits normal electrolytes no MICHAEL Urinalysis is negative for chlamydia gonorrhea no evidence of UTI Pelvic swabs do not show any clue cells or yeast cultures are pending Imaging reviewed Ultrasound today does not show any ovarian torsion or cyst CT shows diverticulosis without diverticulitis and normal appendix no bowel obstruct Patient given IV fluids 1 dose of Rocephin Records from [facility] have been reviewed she was seen evaluated there on July 17 to . She had a gallbladder ultrasound there she was noted to have a WBC count of 13.[address] which showed possible distal gastritis. She was ultimately admitted to observation to the hospitalist for ongoing abdominal pain. Thought that she may have nephrolithiasis at that time she had some hematuria Patient has had a repeat extensive workup in the emergency department including pelvic exam pelvic ultrasound CT and repeat blood work. Blood work appears overall stable compared to [facility] records. Pain is controlled with Dilaudid and Toradol. She was given 1 dose of Rocephin for possible PID although exam was pretty unremarkable, urine chlamydia gonorrhea negative along with wet prep is negative. Unclear source of pain although pain is significantly better controlled than when she 1st got here. Discussion with patient and mother at bedside in regards to plan and care. Recommend GI follow-up return as needed. Differential diagnosis ovarian torsion diverticulitis perforation bowel obstruction PID nephrolithiasis Discharge Plan Departure Patient Disposition: Home Clinical Impression: Abdominal pain Instructions: DI for Abdominal Pain-Adult Activity Restrictions/Additional Instructions: *You have been diagnosed with abdominal pain *What to do: At this time you had full evaluation workup in the emergency department. Unclear where cause of abdominal pain is I do recommend that you see a GI specialist possibly get a colonoscopy *Continue to take medications as directed Gable 1 tablet every 6 hours if needed for severe pain Motrin 600 mg every 6 hours for [id number] pain *Follow up with your primary care provider in 2-3 days or call [phone] *Return to ER if you should have increasing abdominal pain persistent vomiting not tolerating fluids or any new, worsening or concerning symptoms CONTROLLED SUBSTANCE DISCHARGE (Narcotoic/benzodiazepine/Flexeril/Phenergan) 1. You have been prescribed narcotic medications, it does have acetaminophen/Tylenol/paracetamol in it, DO NOT TAKE MORE THAN 4,00mg in 24 hours of Tylenol. TRAMADOL DOES NOT CONTAIN TYLENOL 2. Please understand that we cannot provide further refills of narcotics, benzodiazepines or controlled substances through the ED and her pain management will need to be through your provider. 3. While on these medications you cannot drive or operate heavy machinery. 4. You cannot sign legal documents or perform any duties such as this. 5. As long as you're taking opiate pain medications he should also be taking a stool softener such as Colace, Dulcolax, MiraLAX or prune juice, to help avoid constipation. Prescriptions: New hydrocodone-acetaminophen 5-325 mg tablet 1 tab PO Q6H PRN (Reason: pain) Qty: 10 0RF No Action albuterol sulfate 90 mcg/actuation HFA aerosol inhaler inhalation Patient Comments: [NO ORIGINAL SIG] fluticasone propionate [Flonase Allergy Relief] 50 mcg/actuation spray,suspension 1 spray intranasal Q12H Qty: 16 0RF Rx Instructions: administer into each nostril Twirla 120-30 mcg/24 hr patch weekly 1 patch transdermal Q7D Rx Instructions: apply once weekly for 3 weeks of a 4-week cycle Referrals: Patrick Valiente MD [Primary Care Provider] - Stand Alone Forms: Patient Portal/API/Survey
[2024-07-21 07:23] LABS: Add Manual Diff / Slide Review NO; Basophils Absolute Auto 100 /uL (0-100); Basophils Percent Auto 0.4 % (0-2); Eosinophils Absolute Auto 300 /uL (0-450); Hematocrit 42.1 % (36-46); Hemoglobin 14.2 g/dL (12.0-16.0); Lymphocytes Absolute Auto 3100 /uL (1100-4500); Mean Corpuscular HGB Conc 33.8 % (30-36); Mean Corpuscular Hemoglobin 29.5 PG (26-34); Mean Corpuscular Volume 87.3 fL (80-100); Monocytes Absolute Auto 700 /uL (0-900); Monocytes Percent Auto 5.1 % (3-14); Neutrophils Absolute Auto 9800 /uL (1500-7000); Neutrophils Percent Auto 70.5 % (50-75); Platelet Count 243 X10^3/uL (150-400); Red Blood Cell Count 4.82 X10^6/uL (4.0-5.2); Red Cell Distribution Width 12.5 % (11.6-14.8); White Blood Cell Count 13.9 X10^3/uL (4.5-11.0)
--- NOTE | 2024-07-21 07:24 | DI.CT.S_ITS ---
PROCEDURE: CT ABDOMEN PELVIS W CON INDICATIONS: left flank and llq pain TECHNIQUE: After the administration of intravenous contrast, axial sections acquired from the lung bases to the pubic symphysis. Coronal and sagittal reformats were performed. For radiation dose reduction, the following was used: automated exposure control, adjustment of mA and/or kV according to patient size. COMPARISON: None. FINDINGS: Image quality: Diagnostic. Lower Chest: No significant findings. ABDOMEN: Liver: No solid mass. Gallbladder: No radiopaque gallstones or gallbladder wall thickening. Biliary ducts: No biliary dilation. Pancreas: No ductal dilation. Spleen: Size is within normal limits. Adrenal Glands: No adrenal nodules. Kidneys and Ureters: No hydronephrosis. No solid mass. No complex renal cystic lesion which requires follow up. Stomach and Bowel: Small hiatal hernia. No bowel obstruction or abnormal bowel wall thickening. Appendix is visualized in bilayer quadrant and is within normal limits. Mild sigmoid diverticulosis without CT evidence of acute diverticulitis. Peritoneum: No abnormal intraperitoneal fluid. No free air. Ventral Wall: No significant ventral hernia. Abdominal Nodes: No retroperitoneal or mesenteric adenopathy by size criteria. Vessels: Aorta and inferior vena cava are normal in size. PELVIS: Pelvic Organs: Unremarkable. Bladder: No bladder wall thickening, accounting for underdistention. Pelvic Nodes: No enlarged lymph nodes. Miscellaneous: No inguinal hernias are seen. Bones: No aggressive osseous abnormality. IMPRESSION: 1. Sigmoid diverticulosis without CT evidence of acute diverticulitis. Normal appendix. No bowel obstruction. No free fluid or free air. 2. No obstructing renal stones or hydronephrosis. 3. No acute inflammatory process is seen in abdomen or pelvis. Dictated by: Glenn Hayes M.D. on 07/21/2024 at 8:38 Approved by: Glenn Hayes M.D. on 07/21/2024 at 8:42
[2024-07-21] MEDS: ONDANSETRON 4 MG/2 ML INJ IV (07:28)
[2024-07-21] MEDS: KETOROLAC 30 MG/ML VIAL 15 MG IV (07:28)
[2024-07-21] MEDS: HYDROMORPHONE 1 MG INJ IV ×2 (07:28→10:49)
[2024-07-21] MEDS: SODIUM CHLORIDE 0.9% 1,000 ML 1000 ML IV (07:28)
[2024-07-21 07:35] LABS: Alanine Aminotransferase 25 IU/L (<35); Albumin 4.5 g/dL (3.5-5.0); Albumin Globulin Ratio 1.6 (1.0-2.8); Alkaline Phosphatase 84 U/L (38-126); Aspartate Aminotransferase 30 IU/L (14-36); BUN Creatinine Ratio 15.6 (6-22); Bilirubin Total 0.5 mg/dL (0.2-1.3); Blood Urea Nitrogen 10 mg/dL (7-17); Carbon Dioxide 26 mmol/L (22-32); Chloride 101 mmol/L (98-107); Estimated Glomerular Filt Rate > 60 mL/min (>60); Globulin 2.9 g/dL (1.7-4.1); Glucose 123 mg/dL (70-100); HEMOLYSIS < 15 (0-50); Lipase 92 U/L (23-300); Potassium 3.5 mmol/L (3.4-5.1); Sodium 136 mmol/L (137-145); Total Protein 7.4 g/dL (6.3-8.2)
[2024-07-21 08:36] LABS: Urine Volume 10mL (spun)
[2024-07-21 08:41] LABS: Bacteria Urine None Seen; Culture Indicated Urine Cult Not Indicated; RBC Urine 1-5/HPF (0-5/HPF); Squamous Epithelial Cell Urine 1-5 /HPF (0-5/HPF); WBC Urine None Seen (0-5/HPF)
--- NOTE | 2024-07-21 09:03 | DI.US.S_ITS ---
PROCEDURE: US PELVIC COMPLETE INDICATIONS: llq pain TECHNIQUE: Real-time scanning was performed of the pelvic organs, with image documentation. Additional endovaginal scanning was necessary due to incomplete visualization of the adnexal and endometrial structures by transabdominal scanning. COMPARISON: [facility], , US PELVIC COMPLETE, 11/14/2020, 8:04. FINDINGS: Uterus: 7.1 x 4.3 x 4.1 cm. Retroverted positioning. Thin endometrium measuring 1 mm. Nonspecific tiny echogenic foci. Ovaries: Nonenlarged bilaterally. Other: Incidentally noted cervical motion tenderness. Small amount pelvic free fluid. IMPRESSION: No acute uterine or ovarian abnormality by ultrasound. Cervical motion tenderness incidentally noted on sonographic exam. Dictated by: Husam Da Silva M.D. on 07/21/2024 at 10:18 Approved by: Husam Da Silva M.D. on 07/21/2024 at 10:20
[2024-07-21] MEDS: ACETAMINOPHEN IV 1,000 MG/100 ML VIAL 400 MG IV (09:15)
[2024-07-21] MEDS: cefTRIAXone 1,000 MG in SODIUM CHLORIDE 0.9% 100 ML 200 MG IV (11:34)
[2024-07-21 11:37] VITALS: PULSE 67; O2SAT 99
[2024-07-21 11:37] LABS: Urine N gonorrhoeae NOT DETECTED
[2024-07-21 11:38] VITALS: BP 120/78; PULSE 59; O2SAT 99
[2024-07-21 11:39] LABS: Urine Chlamydia NOT DETECTED
[2024-07-21 12:00] VITALS: PULSE 74; O2SAT 98
[2024-07-21 12:01] VITALS: BP 120/72; PULSE 65; O2SAT 99
[2024-07-25 20:09] LABS: Chlamydia trachomatis Negative (Negative); Mycoplasma genitalium Negative (Negative); Neisseria gonorrhoeae Negative (Negative)
== END 2024-07-21 12:14 | disposition home or self-care (01) ==
PROVIDERS: Emergency Provider Emergency Medicine; Family Provider Family Medicine; PCP Family Medicine
DX: R10.32 Left lower quadrant pain (principal)
CPT/HCPCS: 36415; 74177; 76830; 76856; 80053; 81003; 81015; 81025; 83690; 85025; 87070; 87205; 87210; 87491; 87563; 87591; 96361; 96365; 96367; 96375; 96376; 99284; J0131; J0696; J1171; J1885; J2405; Q9967

== ENCOUNTER 2025-03-30 14:29 | Emergency (ER) | payer BC, SELFPAY ==
[2025-03-30] VITALS (7 sets, daily range): BP systolic 120–146; BP diastolic 74–103; PULSE 76–101; RESP 9–18; TEMP 37.4; O2SAT 97–99
--- NOTE | 2025-03-30 14:46 | ED.ALLEREA ---
HPI - Allergic Reaction General Chief complaint: Allergic Reaction Stated complaint: Anfalactic reaction. Time Seen by Provider: 03/30/25 14:45 Source: patient, RN notes reviewed and old records reviewed Mode of arrival: Ambulatory Limitations: no limitations History of Present Illness HPI narrative: 24-year-old showed female history of anaphylactic not allergy. Patient presents after biting into a cookie that has not send it. Patient states she did not swallow but it is spit it out with shortly prior to arrival. Patient states that has has a little swelling swelling of her tongue, airway, she feels itchy all over. Feels a little bit short of breath. Denies fevers or chills. States symptoms started very shortly go has been slowly changing. Denies any chest pain, no nausea or vomiting. No diarrhea. She has not had any hives that she is appreciated. She has had anaphylactic type allergies in the past but has not adjusted nuts patient states she has a required epi in the past. She has not taken any medication prior to arrival. States only daily medications are oral contraceptive. Does use tobacco, occasional alcohol, marijuana no other recreational drugs reported. Related Data Home Medications ?Medication ?Instructions ?Recorded ?Confirmed levonorgestrel 120 mcg-e.estradiol 1 patch transdermal Q7D 05/30/24 05/30/24 30 mcg/24 hr weekly transderm patch (Twirla) albuterol sulfate 90 mcg/actuation inhalation 06/01/24 06/01/24 aerosol inhaler Previous Rx's ?Medication ?Instructions ?Recorded fluticasone propionate 50 1 spray intranasal Q12H #16 grams 05/10/23 mcg/actuation nasal spray,suspension (Flonase Allergy Relief) hydrocodone 5 mg-acetaminophen 325 1 tab PO Q6H PRN pain #10 tabs 07/21/24 mg tablet epinephrine 0.3 mg/0.3 mL 0.3 mg (0.3 mL) IM Q5-15M PRN 03/30/25 injection, auto-injector (EpiPen anaphylaxis #2 ea 2-Oliver) prednisone 20 mg tablet 40 mg (2 x 20 mg) PO DAILY 3 days 03/30/25 #6 tabs Allergies Allergy/AdvReac Type Severity Reaction Status Date / Time peanut Allergy Severe Anaphylaxis Verified 06/01/24 08:02 tree nut Allergy Severe Anaphylaxis Verified 06/01/24 08:02 Review of Systems Review of Systems ROS Unobtainable: All systems reviewed & are unremarkable except as noted in HPI and below Patient History alcohol intake frequency: holidays/special occasions only Exam Narrative Exam Narrative: GEN: well nourished, well appearing female, alert and oriented x 3, patient appears to be in mild distress. HEENT: Atraumatic, pupils are equal round reactive to light, extraocular movements are intact, nares are clear, TMs are clear with no fluid, there is no conjunctival pallor. Throat is clear without any exudates, erythema, tonsillar enlargement or uvular deviation HEART: Regular rate and rhythm without murmur, clicks, rubs. Pulses are equal in upper and lower extremities LUNGS:Lungs clear to auscultation, no wheezes, rales, crackles, chest moves symmetrically ABD:bowel sounds normal, soft, non-tender, no guarding, rebound, rigidity, no masses noted, no hepatosplenomegaly :No CVA tenderness. MSCL: Non-tender, no muscle atrophy, muscles strength 5/5 upper and lower extremities, full range of motion, normal gait NEURO:CN 2-12 intact, sensation normal SKIN: Patient is feeling slightly erythematous on extremities no hives or lesions appreciated Initial Vital Signs Initial Vital Signs: Vital Signs Temperature 99.3 F 03/30/25 14:36 Pulse Rate 101 H 03/30/25 14:36 Respiratory Rate 18 03/30/25 14:36 Blood Pressure 146/103 H 03/30/25 14:36 Pulse Oximetry 97 03/30/25 14:36 Oxygen Delivery Method Room Air 03/30/25 14:36 Course Orders Ordered: Discontinued Medications Diphenhydramine HCl (Diphenhydramine 50 Mg/Ml Vial) 50 mg IV NOW ONE Stop: 03/30/25 14:46 Last Admin: 03/30/25 14:52 Dose: 50 mg Documented By: RB Epinephrine HCl (Epinephrine 1 Mg/Ml) 0.3 mg IM NOW ONE Stop: 03/30/25 14:46 Last Admin: 03/30/25 17:20 Dose: Not Given Documented By: CTS Famotidine (Famotidine 20 Mg/2 Ml Vial) 20 mg IV NOW GINA Last Admin: 03/30/25 14:52 Dose: 20 mg Documented By: RB Sodium Chloride (Normal Saline 0.9%) 1,000 mls @ 1,000 mls/hr IV BOLUS ONE Stop: 03/30/25 15:44 Last Infusion: 03/30/25 17:20 Dose: Infused Documented By: Admin: 03/30/25 14:53 Dose: 1,000 mls/hr Documented By: RB Methylprednisolone (Methylprednisolone Succ 125 Mg/2 Ml Vial) 125 mg IV NOW ONE Stop: 03/30/25 14:46 Last Admin: 03/30/25 14:52 Dose: 125 mg Documented By: RB Vital Signs Vital signs: Vital Signs - 8 hr 03/30/25 14:36 03/30/25 14:40 03/30/25 14:40 Temperature 99.3 F Pulse Rate 101 H 98 H Respiratory Rate 18 Blood Pressure 146/103 H 139/98 H Pulse Oximetry 97 97 Oxygen Delivery Method Room Air 03/30/25 15:00 03/30/25 15:00 03/30/25 15:30 Temperature Pulse Rate 77 76 Respiratory Rate 9 L 17 Blood Pressure 141/92 H Pulse Oximetry 98 99 Oxygen Delivery Method 03/30/25 15:30 03/30/25 16:00 03/30/25 16:00 Temperature Pulse Rate 78 Respiratory Rate 15 Blood Pressure 134/80 120/74 Pulse Oximetry 98 Oxygen Delivery Method 03/30/25 16:30 03/30/25 16:30 03/30/25 17:00 Temperature Pulse Rate 80 85 Respiratory Rate 17 18 Blood Pressure 123/74 Pulse Oximetry 97 97 Oxygen Delivery Method 03/30/25 17:00 Temperature Pulse Rate Respiratory Rate Blood Pressure 123/75 Pulse Oximetry Oxygen Delivery Method MDM - Allergic Reaction MDM Narrative Medical decision making narrative: 24-year-old female 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 Patient had Benadryl, Pepcid, steroids on rechecked shortly thereafter she is feeling much improved she is not have any additional swelling she feels like her symptoms are resolved. We did discuss giving epi but symptoms were fairly mild initially does not feel like she needs it at this time. Patient was observed for a period of time discharged home on oral steroids. Discharge Plan Departure Patient Disposition: Home Clinical Impression: Allergic reaction Instructions: DI for Anaphylaxis Activity Restrictions/Additional Instructions: Follow up with your physician as needed. Take oral steroids as prescribed. Prescription sent to [facility] in [place]. Make sure you keep an EpiPen available. Please return if you have recurrent symptoms, new swelling of your lips tongue or airway, rash, hives, persistent vomiting, new swelling of your extremities, new chest pain or shortness of breath or other new or concerning changes. Prescriptions: New prednisone 20 mg tablet 40 mg PO DAILY 3 Days Qty: 6 0RF epinephrine [EpiPen 2-Oliver] 0.3 mg/0.3 mL auto-injector 0.3 mg IM Q5-15M PRN (Reason: anaphylaxis) Qty: 2 0RF Rx Instructions: do not exceed 3 doses per episode No Action albuterol sulfate 90 mcg/actuation HFA aerosol inhaler inhalation Patient Comments: [NO ORIGINAL SIG] fluticasone propionate [Flonase Allergy Relief] 50 mcg/actuation spray,suspension 1 spray intranasal Q12H Qty: 16 0RF Rx Instructions: administer into each nostril Twirla 120-30 mcg/24 hr patch weekly 1 patch transdermal Q7D Rx Instructions: apply once weekly for 3 weeks of a 4-week cycle hydrocodone-acetaminophen 5-325 mg tablet 1 tab PO Q6H PRN (Reason: pain) Qty: 10 0RF Referrals: Patrick Valiente MD [Primary Care Provider, Family Practice] Stand Alone Forms: Patient Portal/API
[2025-03-30] MEDS: methylPREDNISolone succ 125 MG/2 ML VIAL IV (14:52)
[2025-03-30] MEDS: FAMOTIDINE 20 MG/2 ML VIAL IV (14:52)
[2025-03-30] MEDS: diphenhydrAMINE 50 MG/ML VIAL IV (14:52)
[2025-03-30] MEDS: SODIUM CHLORIDE 0.9% 1,000 ML 1000 ML IV (14:53)
== END 2025-03-30 17:30 | disposition home or self-care (01) ==
PROVIDERS: Emergency Provider Emergency Medicine; Family Provider Family Medicine; PCP Family Medicine
DX: T78.09XA Anaphylactic reaction due to other food products, initial encounter (principal); R06.02 Shortness of breath; K14.8 Other diseases of tongue; L29.89 Other pruritus
CPT/HCPCS: 96361; 96374; 96375; 99283; 99284; J1200; J2919; J7030